=== PATIENT | female | born 1935 | race Caucasian/White ===

== ENCOUNTER 2019-01-09 17:09 | Inpatient (IN) ==
--- NOTE | 2019-01-09 18:11 | PROVIDER DOCUMENTATION ---
HPI-General Adult - General Chief Complaint: Return/Recheck Stated Complaint: CHILLS Time Seen by Provider: 01/09/19 17:34 Source: patient, family Allergies/Adverse Reactions: Patient Allergies Allergy/AdvReac Type Severity Reaction Status Date / Time diphenhydramine Allergy SHORTNESS Verified 12/27/18 21:48 [From Benadryl] OF BREATH Home Medications: Home Medication List Medication Instructions Recorded Confirmed Last Taken Type Glimepiride 4 mg PO DAILY 09/15/12 01/09/19 12/21/18 History Metformin [Glucophage] 500 mg PO DAILY 06/25/16 01/09/19 12/21/18 History Brimonidine/Timolol Ophth Soln 1 drp BOTH EYES HS 12/21/18 01/09/19 12/20/18 History [Combigan Ophth Soln] Hydrocodone/Acetaminophen [[place] 1 tab PO PRN PRN 01/09/19 01/09/19 Unknown History 10-325 Tablet] Morphine E.r. [Ms Contin] 15 mg PO 2-4XDAY PRN PRN 01/09/19 01/09/19 Unknown History - History of Present Illness -Gen Adult Nature of Presenting Problems: cancer patient receiving radiation and chemo for vulvar cancer who has had recurrent UTI's that has not responded to 2 rounds of oral antibiotics,who presents with increased weakness, decreased mentation, and chills since yesterday. Location of Pain/Injury: reports: none Pain Radiation: reports: no radiation Quality of Pain: reports: none Severity: reports: mild Onset/Duration: reports: gradual Timing: reports: still present Context/Activities at Onset: reports: light activity Modifying Factors: improves with: lying down Associated Symptoms: reports: fever/chills, other (chilled no measured temp) Similar Symptoms Previously?: Yes Recently seen or treated by another doctor?: Yes Review of Systems - Adult - REVIEW OF SYSTEMS - ADULT Constitutional: reports: chills, fever Eyes: reports: no symptoms reported Ears, Nose, Mouth & Throat: reports: no symptoms reported Cardiovascular: denies: chest pain, palpitations Respiratory: reports: shortness of breath Gastrointestinal: denies: diarrhea, nausea, vomiting Genitourinary: denies: dysuria Musculoskeletal: reports: no symptoms reported Integumentary: reports: no symptoms reported Neurological: reports: no symptoms reported Psychiatric: reports: no symptoms reported Endocrine: reports: no symptoms reported Hematologic/Lymphatic: reports: no symptoms reported Allergic/Immunologic: reports: no symptoms reported Past History - Adult - PAST MEDICAL HISTORY-ADULT Review of Records: reports: Nursing Assessment Review, Medications Reviewed, Social history reviewed & non-contributory. Major Childhood Illnesses: reports: denies history Cardiovascular: reports: HTN Respiratory: reports: denies history Gastrointestinal: reports: denies history Genitourinary: reports: cancer Musculoskeletal: reports: denies history Neurological: reports: denies history Psychiatric: reports: depression Endocrine/Immune: reports: Diabetes Diabetes Type: Type 2 Diabetes controlled by:: PO Meds - FAMILY HISTORY Family History: reviewed, not pertinent - SOCIAL HISTORY Smoking: denies Physical Exam-General - PHYSICAL EXAM-ADULT Initial Vital Signs Reviewed: Yes - CONSTITUTIONAL General Appearance: appears well, alert, no apparent distress - EYES Eyes: pale conjunctivae - HEAD, EARS, NOSE, MOUTH & THROAT HENMT: other (coated tongue) - NECK Neck: supple - RESPIRATORY Respiratory: lungs clear - CARDIOVASCULAR Cardiovascular: regular rate, rhythm, no edema - GASTROINTESTINAL (ABDOMEN) Abdominal Exam: normal bowel sounds, soft, no organomegaly, no pulsatile mass - LYMPHATIC Lymphatic: no adenopathy - MUSCULOSKELETAL Back Exam: normal inspection, no CVA tenderness, no vertebral tenderness Extremity: normal range of motion, non-tender - SKIN Integumentary: normal color, normal turgor - NEUROLOGIC Neurologic: grossly normal - PSYCHIATRIC Psych/Mental Status: oriented x 3 Progress - PLAN OF CARE/RESULTS Progress/Plan/Lab Results: Vital Signs - 8 hr 01/09/19 17:14 Temperature 98.8 F Pulse Rate 113 H Respiratory Rate 20 Blood Pressure 167/76 O2 Sat by Pulse Oximetry 96 Result Diagrams: 01/09/19 18:32 01/09/19 18:32 - CONSULTS/PCP/HOSPITALIST Notification #1 *Consult/PCP/Hospitalist*: Dr. Reyna, hospitalist Time Discussed: 22:25 Consult Disposition: Admit Departure - Departure Date of Disposition Decision: 01/09/19 Time of Disposition Decision: 22:27 DIAGNOSIS: Failure of outpatient treatment, Vulvar cancer, Weakness generalized Urinary tract infection Qualifiers: Urinary tract infection type: site unspecified Hematuria presence: with hematuria Qualified Code(s): N39.0 - Urinary tract infection, site not specified Anemia Qualifiers: Anemia type: unspecified type Qualified Code(s): D64.9 - Anemia, unspecified Disposition: ADMITTED INPATIENT 09 Certified Medical Emergency: Emergent Condition: Stable Referrals and Follow-Ups: Anmol Cottrell MD [Primary Care Provider] - - Critical Care Note This patient required my direct & personal management of CC.: No Attestation - Physician/ MELVIN Attestation Patient care was provided by Advanced Practice Provider:: No The physician spent face to face time with patient:: Yes Advanced Practice Provider documentation review:: Supervising physician onsite and consulted in the evaluation and care of this patient. The physician did have a face to face encounter with the patient.
[2019-01-09 19:12] LABS: BILIRUBIN URINE NEGATIVE (NEGATIVE); BLOOD URINE 1+ (NEGATIVE); CLARITY CLEAR (CLEAR); COLOR YELLOW; GLUCOSE URINE NEGATIVE (NEGATIVE); KETONE URINE TRACE mg/dL (NEGATIVE); LEUKOCYTES URINE 1+ (NEGATIVE); NITRITE URINE NEGATIVE (NEGATIVE); PH URINE 6.5; PROTEIN URINE 1+(30 mg/dL) mg/dL (NEGATIVE); UROBILINOGEN URINE NORMAL
[2019-01-09 19:20] LABS: CALCIUM 8.3 mg/dL (8.8-10.2); CREATININE 1.1 mg/dL (0.5-0.9); POTASSIUM 3.8 mmol/L (3.5-5.1); TOTAL BILIRUBIN 0.7 mg/dL (0.20-1.00); TOTAL PROTEIN 6.8 g/dL (6.3-8.3)
[2019-01-09 19:35] LABS: URINE BACTERIA 1+ /HFP; URINE CAST NONE SEEN /LPF; URINE CRYSTAL NONE SEEN /HPF; URINE EPITHELIAL CELLS <10 /HPF (<10); URINE WBC 20-40 /HPF (<10); URINE YEAST NONE SEEN /HPF
[2019-01-09 19:36] LABS: URINE SOURCE CATH
[2019-01-09 19:43] LABS: BASO# 0.01 X1000 (0.0-0.2); BASO% 0.1 % (0.0-0.8); EOS# 0.01 X1000 (0.0-0.7); EOS% 0.1 % (0.0-10.0); HEMATOCRIT 23.9 % (37.0-47.0); HEMOGLOBIN 7.2 g/dL (12.0-16.0); IMM GRAN# 0.04 X1000 (0.0-0.04); IMM GRAN% 0.6 % (0.0-0.5); LYMPH# 0.63 X1000 (1.2-3.4); LYMPH% 8.8 % (20.5-51.1); MCH 28.2 PG (27-31); MCHC 30.1 g/dL (33-37); MCV 93.7 FL (81-99); MONO# 0.91 X1000 (0.11-0.59); MONO% 12.7 % (1.7-9.3); MPV 9.4 FL (7.4-10.4); NEUT# 5.54 X1000 (1.4-6.5); NEUT% 77.7 % (42.2-75.2); PLT 289 X1000 (130-400); RBC 2.55 XMIL (4.2-5.4); RDW 17.5 % (11.5-14.5); WBC 7.14 X1000 (4.8-10.8)
[2019-01-09] MEDS ORDERED: ROCEPHIN 1 GM in NS 50 ML IV ONE (20:47)
[2019-01-09] MEDS ORDERED: MS CONTIN PO PRN (23:36)
[2019-01-10 06:35] LABS: BASO# 0.02 X1000 (0.0-0.2); BASO% 0.3 % (0.0-0.8); HEMATOCRIT 24.9 % (37.0-47.0); HEMOGLOBIN 7.2 g/dL (12.0-16.0); IMM GRAN# 0.03 X1000 (0.0-0.04); IMM GRAN% 0.4 % (0.0-0.5); LYMPH% 15.5 % (20.5-51.1); MCH 27.3 PG (27-31); MCHC 28.9 g/dL (33-37); MCV 94.3 FL (81-99); MONO# 1.04 X1000 (0.11-0.59); MONO% 14.7 % (1.7-9.3); MPV 9.4 FL (7.4-10.4); NEUT# 4.89 X1000 (1.4-6.5); NEUT% 69.1 % (42.2-75.2); PLT 281 X1000 (130-400); RBC 2.64 XMIL (4.2-5.4); RDW 17.2 % (11.5-14.5); WBC 7.08 X1000 (4.8-10.8)
[2019-01-10 06:46] LABS: CALCIUM 8.3 mg/dL (8.8-10.2); CREATININE 0.9 mg/dL (0.5-0.9); POTASSIUM 3.5 mmol/L (3.5-5.1)
[2019-01-10] MEDS ORDERED: MS CONTIN PO SCH (09:00)
--- NOTE | 2019-01-10 13:35 | HISTORY AND PHYSICAL ---
PRIMARY CARE PHYSICIAN: Dr. Anmol Cottrell PRIMARY REGULATORY AFFAIRS STRATEGY SPECIALIST: Dr. Craig HISTORY OF PRESENT ILLNESS: This is an 84-year-old female with history of vulvar cancer, currently under active chemotherapy. She was brought to the emergency department yesterday because she was confused. She was having fever and chills. She had also increased weakness. Apparently, she reported that she had a UTI that failed outpatient treatment. Last time she has been here was a few days ago. She was seen in the ER and she was sent home with amoxicillin. She did not notice basically too much improvement, so she decided to come to the emergency department here. Then, she was found to have normal white cell count. Actually the urinalysis did not show many white blood count and nitrate was negative. Because of weakness and recurrent UTI, she was admitted for recurrent UTI. PAST MEDICAL HISTORY: 1. Kiq-kcirfzu-bnfgovgog diabetes mellitus. 2. Hypercholesterolemia. 3. Hypertension. 4. Statin intolerance due to muscle pain. 5. Vulvar cancer diagnosed in 2018. She has received chemotherapy and radiotherapy. She is due for chemotherapy for tomorrow and a PET scan. PAST SURGICAL HISTORY: 1. Vulvar surgery last year. 2. Bladder suspension procedure in 2006. ALLERGIES: Patient is statin intolerant. SOCIAL HISTORY: She is a former smoker. She quit smoking 15 years ago. No alcohol or drugs. FAMILY HISTORY: Noncontributory. REVIEW OF SYSTEMS: Eleven systems were reviewed and all symptoms are related directly. DISCHARGE PHYSICAL EXAMINATION: Vital Signs: Temperature 99 degrees, heart rate 82, respiratory rate 18, blood pressure 120/36, O2 saturation 95% on room air General: This is a chronically ill-appearing, 84-year-old female lying in bed, in no acute distress. HEENT: Head is normocephalic, atraumatic. Alopecia secondary to chemotherapy. Mucous membranes moist. Conjunctivae pale but not icteric. Neck: No JVD noted. No carotid bruits. No lymphadenopathy. No thyromegaly. Cardiovascular: S1, S2 heard. No murmurs, gallops, or rubs. Regular rate and rhythm. Respiratory: Clear bilaterally to auscultation. No work of breathing. No use of accessory muscles. Abdomen: Soft. Nontender to palpation in the suprapubic area. Neurological: Alert and oriented x3. Moves 4 extremities. LABORATORY DATA: White cell count 7.0, hemoglobin 7.2, hematocrit 24.9, platelets 281,000 with normal BMP. ASSESSMENT AND PLAN: 1. Urinary tract infection. 2. General weakness. 3. Vulvar cancer under current chemotherapy. 4. Diabetes mellitus type 2. 5. Hypercholesterolemia. 6. Hypertension. At this point, because of recurrent UTIs, she has been admitted to the hospital. He has been started on ceftriaxone 1 g IV q.24 hours. We will continue with the same management. Will wait for results of urine culture and blood culture. The patient is supposed to receive chemotherapy tomorrow. He requests to be transferred to [facility] to be seen by his primary care doctor, Dr. Cottrell and by Dr. Riley. We will honor his wishes. For diabetes mellitus type 2, we will do sliding scale insulin, Accu-Chek before meals and also at bedtime. For hypertension, considering that his blood pressure is 120s, will hold all medications. Will monitor vitals q.4 hours in the hospital. DISPOSITION: Patient is going to be transferred to [facility] for further evaluation and treatment. cc: Sandoval Rust MD MTDYanelis
[2019-01-10] MEDS ORDERED: HUMALOG (PARKWAY) SUBQ SCH (16:00)
[2019-01-10] MEDS: NORCO-10 PO PRN (17:15)
[2019-01-10] MEDS ORDERED: ROCEPHIN 1 GM in NS 50 ML IV SCH (21:00)
[2019-01-10] MEDS ORDERED: REMERON PO SCH (21:00)
[2019-01-10] MEDS: ROCEPHIN 1 GM in NS 50 ML IV SCH (21:29)
[2019-01-10] MEDS: MS CONTIN PO SCH (21:30)
[2019-01-10] MEDS: COMBIGAN OPHTH SOLN BOTH EYES SCH (21:31)
[2019-01-10] MEDS: HUMALOG SUBQ SCH (21:31)
--- NOTE | 2019-01-10 21:43 | Diag Imaging Result Doc PS360 ---
EXAM: CT ANGIOGRM PULMONARY ARTERIES INDICATION: PE suspected TECHNIQUE: This exam was performed using automated exposure control, adjustment of mA or kV according to patient size, and/or use of iterative reconstruction technique. Thin section axial images and 3-D MIPS were obtained. COMPARISON: 09/08/2012 FINDINGS: There is no evidence of pulmonary embolism. There is extensive aortic atherosclerotic calcification. There is no evidence of aortic aneurysm or dissection. There is no cardiomegaly. There are coronary artery calcifications. There are a few calcified mediastinal lymph nodes indicating prior granulomatous disease. There is trace pleural fluid at the lung bases and minimal bibasilar atelectasis. There are scattered calcified granulomata bilaterally as well as punctate noncalcified nodules that are stable and assumed to represent tiny noncalcified granulomata. Otherwise, the lungs are clear. Limited views of the upper abdomen are essentially unremarkable. IMPRESSION: 1.Trace pleural fluid at the lung bases and minimal bibasilar atelectasis. 2.Other incidental/nonacute findings detailed above. No evidence of pulmonary embolism. Electronically signed by Agustin Jain 01/10/2019 9:41 PM
[2019-01-11] MEDS: PRILOSEC PO SCH ×2 (05:58→06:31)
[2019-01-11] MEDS: HUMALOG SUBQ SCH ×4 (06:30→22:50)
[2019-01-11 06:35] LABS: BASO# 0.01 X1000 (0.0-0.2); BASO% 0.2 % (0.0-0.8); EOS# 0.03 X1000 (0.0-0.7); EOS% 0.5 % (0.0-10.0); HEMATOCRIT 22.1 % (37.0-47.0); HEMOGLOBIN 6.8 g/dL (12.0-16.0); IMM GRAN# 0.02 X1000 (0.0-0.04); IMM GRAN% 0.3 % (0.0-0.5); LYMPH# 0.75 X1000 (1.2-3.4); LYMPH% 11.6 % (20.5-51.1); MCH 28.3 PG (27-31); MCHC 30.8 g/dL (33-37); MCV 92.1 FL (81-99); MONO# 0.77 X1000 (0.11-0.59); MONO% 11.9 % (1.7-9.3); MPV 9.1 FL (7.4-10.4); NEUT# 4.88 X1000 (1.4-6.5); NEUT% 75.5 % (42.2-75.2); PLT 284 X1000 (130-400); WBC 6.46 X1000 (4.8-10.8)
[2019-01-11 06:44] LABS: AGAP 12; ALB/GLOB RATIO 0.7; ALBUMIN 2.5 g/dL (3.5-5.0); ALKALINE PHOSPHATASE 88 U/L (32-104); BUN 15 mg/dL (8-22); CALCIUM 8.4 mg/dL (8.8-10.2); CHLORIDE 99 mmol/L (98-107); COSMO 274; CREATININE 0.8 mg/dL (0.5-0.9); ESTIMATED GFR > 60; GLUCOSE 112 mg/dL (70-104); GOT 23 U/L (10-30); GPT 14 U/L (10-36); POTASSIUM 3.1 mmol/L (3.5-5.1); SODIUM 136 mmol/L (136-145); TCO2 25 mmol/L (25-35); TOTAL BILIRUBIN 0.52 mg/dL (0.20-1.00); TOTAL PROTEIN 6.3 g/dL (6.3-8.3)
[2019-01-11] MEDS ORDERED: LOVENOX SUBQ SCH (09:00)
--- NOTE | 2019-01-11 09:20 | PROGRESS NOTE ---
DATE: 01/11/2019 SUBJECTIVE: The patient is sitting in bed, awake and alert. She is calm. She has no complaints. Admission documentation and the ER visit documentation had been reviewed. OBJECTIVE: Vital Signs: 98.5, 76, 20, 121/48, 99% saturated on nasal cannula. PHYSICAL EXAMINATION: Neuropsych: The patient is alert, oriented, conversant and appropriate. She is a little bit sedate, but she is able to laugh at humorous quips. She is not crying. Lungs: Clear. Cardiovascular: Regular. LABORATORY: White cell count 6.6, hemoglobin is 6.8, hematocrit 22.1, potassium 3.1, creatinine 0.8. ASSESSMENT AND PLAN: 1. The patient has end stage vulvar cancer treated with chemotherapy. Since her last dosing a week and a half ago she has developed arthropathy of the left hand which may be related. She is considering discontinuing chemotherapy, but I have instructed her to discuss this thoroughly with Dr. Riley as to the efficacy of her new treatment. 2. The patient's diabetes is reasonably well controlled. She is not eating well. Her blood sugars have not been low or significantly high. It is noted that she has had weight loss. 3. The patient states that she is confused ever since starting extended release morphine. Unfortunately, there is not a lower extended-release dose available for that. She may benefit from lower doses of OxyContin for continuous pain control. She actually says that her pain is not bad. 4. The patient is in nutritional deficit from the ravages of cancer and chemotherapy. She is encouraged to eat. She is on mirtazapine. I have lowered her dose to 7.5, to help maybe clear some of the fog of her general sensorium. 5. Blood pressure and cardiovascular stable. 6. Hypokalemia is noted. With transfusion of red cells. This should come up some. 7. The patient is anemic with a hemoglobin of 6.8. I plan to transfuse 1 unit packed red cells and recheck in the morning. Serious discussion about do not resuscitate needs to be made. We have discussed in the this in the office in the past. cc: Anmol Cottrell MD
[2019-01-11] MEDS: LOVENOX SUBQ SCH (09:29)
[2019-01-11] MEDS ORDERED: NS 500 ML ONE (12:57)
--- NOTE | 2019-01-11 16:15 | HEMO/ONC CONSULTATION ---
DATE: 01/11/2019 REQUESTING PHYSICIAN: Hospitalist service. REASON FOR CONSULTATION: Vulvar cancer, patient known. HISTORY OF PRESENT ILLNESS: Ms. Melendrez is an 84-year-old female, who is known to us as we are currently treating her for recurrent vulvar cancer. Reportedly, the patient had some confusion with fevers and chills while at home. She also had lots of weakness. She was brought to the emergency department, where she was found to have a UTI. The patient had actually recently been seen at an ER and was already on oral antibiotics for a UTI. She has failed oral antibiotics and has now been admitted for further evaluation and treatment. The patient is currently getting carboplatin and Abraxane weekly in our office. We saw her last about a week or so ago. At that time, we actually held treatment due to her having a decline in her performance status. She was on oral antibiotics on 01/03/2019 and was afebrile, and her symptoms were improving. The patient has also recently seen Dr. Craig, who is from [facility], for an examination. She has been having recurrent UTIs now for the last month or so and has had multiple rounds of oral antibiotics. We have been consulted to help with management of the patient while she is here at the hospital. PAST MEDICAL HISTORY: 1. Yjn-gsauuoc-rhgojbicd diabetes mellitus. 2. Hypercholesterolemia. 3. Hypertension. 4. Recurrent vulvar carcinoma, currently getting weekly carboplatin plus Abraxane, with her last treatment being on 12/24/2018. Recent hold of treatment due to decline in performance status. PAST SURGICAL HISTORY: 1. Vulvar surgery. 2. Bladder suspension procedure back in 2006. SOCIAL HISTORY: Patient is a former smoker, but does not currently smoke. She denies any alcohol use or any illicit drug use. FAMILY HISTORY: Her mother at age of 70, and she had diabetes. Her father at the age of 85. She has 1 brother who is currently alive and has no reported medical issues. She has 9 other siblings who are . She did have 2 sisters who had breast cancer. REVIEW OF SYSTEMS: A 12 point review of systems has been completed and is negative except as expressed in HPI. PHYSICAL EXAMINATION: Vital Signs: Temperature 98.5 degrees, heart rate 76, respirations 20, blood pressure 121/40, O2 saturation 99% on room air. General: This is a female, lying in her hospital bed. She is in no acute distress. No family is at bedside. Head: Normocephalic, atraumatic. Eyes: Pupils equal, round, reactive. Ears, nose, throat, mouth: Oral mucosa is normal. Cardiovascular: S1, S2 heard. There are no murmurs, gallops, rubs appreciated. Respiratory: Chest is clear. Gastrointestinal: Positive bowel sounds noted. Nontender, nondistended. Musculoskeletal: No obvious bony abnormalities. Skin: No rashes. Neurologic: Patient is alert, and oriented at this time. No obvious focal motor deficits noted. DIAGNOSTIC STUDIES: White blood cells today are 6.46, hemoglobin 6.8, platelet count 284,000. Potassium is 3.1. Blood cultures show no growth after 48 hours. Urine culture shows no growth. ASSESSMENT AND PLAN: 1. Recurrent vulvar carcinoma. Patient has been receiving chemotherapy in our office. We recently had to hold due to a declining performance status. Could have been secondary to UTI. The plan was actually to for the patient to have a PET scan earlier today, with follow-up. We have moved that next week, and we will plan to proceed with the PET scan and review that and discuss further treatment from there. 2. Recurrent urinary tract infection. Continue IV antibiotics per the primary team. 3. Pain. We have been given the patient [place] and MS Contin as an outpatient. It looks like her medications are on hold currently, as there is a question that may be contributing to her confusion. 4. Hypokalemia. Management per primary team. 5. Anemia. It looks like they are ready planning to give her a unit of packed red blood cells, which we agree. Patient is receiving growth factor for chemotherapy-induced anemia as an outpatient. We want to thank you for consulting us on Ms. Melendrez. We will continue to follow along and adjust our treatment plan per her hospital course. Dictated by GOKUL Jane for Tara Riley MD cc: MD Anmol Vasquez MD I have seen and examined the patient and the above note reflects my history, physical examination, assessment and plan. Tara Riley MD [facility]
[2019-01-11] MEDS: REMERON PO SCH (20:27)
[2019-01-11] MEDS: NORCO-10 PO PRN (20:27)
[2019-01-11] MEDS: ROCEPHIN 1 GM in NS 50 ML IV SCH (20:27)
[2019-01-11] MEDS: COMBIGAN OPHTH SOLN BOTH EYES SCH (20:28)
[2019-01-12] MEDS: PRILOSEC PO SCH ×2 (05:53→09:39)
[2019-01-12 06:11] LABS: BASO# 0.01 X1000 (0.0-0.2); BASO% 0.2 % (0.0-0.8); HEMATOCRIT 27.4 % (37.0-47.0); HEMOGLOBIN 8.6 g/dL (12.0-16.0); LYMPH% 14.8 % (20.5-51.1); MCH 27.7 PG (27-31); MCHC 31.4 g/dL (33-37); MCV 88.4 FL (81-99); MONO# 0.51 X1000 (0.11-0.59); MONO% 9.5 % (1.7-9.3); PLT 264 X1000 (130-400); RDW 16.3 % (11.5-14.5); WBC 5.39 X1000 (4.8-10.8)
[2019-01-12 06:52] LABS: AGAP 12; BUN 14 mg/dL (8-22); CALCIUM 8.8 mg/dL (8.8-10.2); CHLORIDE 95 mmol/L (98-107); COSMO 269; CREATININE 0.7 mg/dL (0.5-0.9); ESTIMATED GFR > 60; GLUCOSE 103 mg/dL (70-104); POTASSIUM 2.8 mmol/L (3.5-5.1); SODIUM 134 mmol/L (136-145); TCO2 27 mmol/L (25-35)
[2019-01-12 07:16] LABS: BANDS 4 % (0-1); EOS 2 % (1-10); LYMPHS 14 % (21-51); MONO 2 % (1-9); SEGS 78 % (42-75)
[2019-01-12] MEDS ORDERED: MAGNESIUM SULFATE 2 GM/S.W.I. 2 GM/50 ML IVPB IV ONE (08:01)
--- NOTE | 2019-01-12 09:26 | Diag Imaging Result Doc PS360 ---
CHEST-2 VIEWS - 01/09/2019 INDICATION: shortness of breath COMPARISON: 06/25/2016 FINDINGS: The lungs are normally expanded and clear. Heart size and mediastinal contours are normal. No pneumothorax or pleural effusion. IMPRESSION: Negative exam. Electronically signed by Donnell Tomlinson 01/12/2019 9:23 AM
[2019-01-12] MEDS: LOVENOX SUBQ SCH (09:39)
[2019-01-12] MEDS: MS CONTIN PO SCH ×2 (09:39→23:02)
[2019-01-12] MEDS: HUMALOG SUBQ SCH ×4 (09:43→23:02)
[2019-01-12] MEDS: POTASSIUM CHLORIDE 40 MEQ in NS 250 ML IV SCH ×2 (12:53→23:01)
[2019-01-12] MEDS: COMBIGAN OPHTH SOLN BOTH EYES SCH (21:45)
[2019-01-12] MEDS: ROCEPHIN 1 GM in NS 50 ML IV SCH (23:01)
[2019-01-12] MEDS: REMERON PO SCH (23:01)
[2019-01-13] MEDS: POTASSIUM CHLORIDE 40 MEQ in NS 250 ML IV SCH (01:46)
[2019-01-13] MEDS: NORCO-10 PO PRN (05:04)
[2019-01-13] MEDS: PRILOSEC PO SCH (06:35)
[2019-01-13] MEDS: HUMALOG SUBQ SCH ×4 (06:35→21:03)
--- NOTE | 2019-01-13 10:02 | PROGRESS NOTE ---
DATE: 01/12/2019 SUBJECTIVE: The patient states that she feels a little better. She is in a better mood. She did pretty well with reduced doses of pain medications yesterday. She did not get up with physical therapy. She is eating a bit better. We discussed her low potassium. PHYSICAL EXAM: Vital Signs: 98.0, 68, 14, 130/47, 99% saturated on room air. Lungs are clear. Cardiovascular: Regular. Extremities: No peripheral edema. She has some muscle wasting in her thighs. Neurologic/psychiatric: She is alert, oriented, conversive and appropriate. LABORATORY: Hemoglobin is up to 8.6 following transfusion. Potassium has dropped to 2.9 despite transfusion, BUN 14, creatinine 7, blood sugars variable depending on how much she eats. ASSESSMENT AND PLAN: 1. Dr. Riley is handling the patient's vulvar cancer. Consultation has been completed. 2. Diabetes is variable, but her appetite has been so poor that we had held her diabetic medications. We will continue to watch this. 3. Reduction in MS Contin has resulted in a little bit clearer sensorium for the patient. 4. Nutritional deficit remains. The patient is encouraged to eat. 5. Blood pressure and cardiovascular are stable. 6. Potassium and magnesium will be transfused today. We will recheck this as necessary. 7. The patient has been transfused 1 unit of packed cells with improvement in her hemoglobin that is appropriate. cc: Anmol Cottrell MD
--- NOTE | 2019-01-13 10:25 | Diag Imaging Result Doc PS360 ---
EXAM: KNEE 3 VIEWS RIGHT 01/13/2019 HISTORY: comparison film TECHNIQUE: Right knee three views COMMENT: There is narrowing of the medial joint compartment. There is no evidence of acute fracture or dislocation. There is atherosclerotic calcification in the superficial femoral and popliteal arteries. IMPRESSION: Osteoarthritis. Electronically signed by Eamon Larsen 01/13/2019 10:23 AM
--- NOTE | 2019-01-13 10:27 | Diag Imaging Result Doc PS360 ---
EXAM: KNEE 3 VIEWS LEFT 01/13/2019 HISTORY: left knee pain TECHNIQUE: Left knee three views COMMENT: There is chondrocalcinosis in the menisci. There are calcific atherosclerotic plaques throughout the superficial femoral and popliteal arteries. There is calcification in the quadriceps tendon. No evidence of acute fracture or dislocation is present. There may be a small suprapatellar effusion. 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 Severe atherosclerosis. Electronically signed by Eamon Larsen 01/13/2019 10:24 AM
[2019-01-13] MEDS: GLUCOPHAGE PO SCH (10:39)
[2019-01-13] MEDS: MS CONTIN PO SCH (10:39)
[2019-01-13] MEDS: LOVENOX SUBQ SCH (10:39)
--- NOTE | 2019-01-13 12:11 | PROGRESS NOTE ---
DATE: 01/13/2019 SUBJECTIVE: The patient states she is feeling okay. She is not having much pain. She is eating reasonably well. She states that she did not get up with physical therapy yesterday, even though they had her sit up for quite some time. She stated that her left knee was hurting, and she had fallen at home. This is the first I have heard of this in 3 days. She initially complained that her left hand was stiff or hurting, but never mentioned any problems with her legs or knees. At the present time, she does not think that she could ambulate. The patient is eating reasonably well. Her blood sugars are trending upward. We discussed this. OBJECTIVE: 97.8, 76, 16, 146/51, and 100% saturated on nasal cannula. On physical exam, the patient's lungs are clear. Cardiovascular regular. Extremities revealed no peripheral edema. There appears to be resolving bruise on the medial portion of the left knee. There is a slight enlargement or effusion of the left popliteal fossa. The patient has some tenderness medially. She also has tenderness with anterior drawer and with varus stress to the knee. The remainder of the leg appears normal with the exception of some muscle wasting in the thighs due to the ravages of her disease. Neuropsych: Patient is alert, oriented, conversive, and appropriate. LABORATORY: No lab was drawn. The patient's blood sugars have been trending upward into the mid to upper 200s. ASSESSMENT AND PLAN: 1. End-stage vulvar cancer is being handled by Dr. Riley. 2. The patient's diabetes is trending upward and less well controlled. She is eating a bit better now. I plan to reinstitute her glimepiride, and we will monitor blood sugars. 3. The patient is on extended release morphine twice a day. At this point, she has p.r.n.'s for breakthrough pain, which she rarely uses. After reducing her mirtazapine at night, she seemed to have a little clearer sensorium. I do not think that there is any need to change that extended release morphine at the present time. 4. Nutritional deficit is noted. 5. Blood pressure and cardiovascular are stable. 6. We will recheck the patient's potassium tomorrow. 7. We will recheck hemoglobin tomorrow. 8. I have ordered x-rays of both knees so we can have comparison films, and I have put in a consult for Dr. Knowles to see if there is anything we can do to alleviate her knee pain. 9. The patient continues to require inpatient hospital care, and hopefully we can get this knee addressed and get her back on her feet that she would be ready to go home. At the present time, I do not think she could manage her own affairs due to lack of mobility as she lives alone. It is unlikely that the patient would agree to a rehab stay. We may discuss this going down the line. cc: Anmol Cottrell MD
[2019-01-13] MEDS ORDERED: DEPO-MEDROL IM ONE (15:00)
[2019-01-13] MEDS ORDERED: MARCAINE 0.5% INJ ONE (15:01)
[2019-01-13 19:39] LABS: BODY FLUID SOURCE SYNOVIAL FLUID; MONOS 12 %; POLYS 88 %; WBC BF 11050 /cumm
[2019-01-13] MEDS: ROCEPHIN 1 GM in NS 50 ML IV SCH (21:02)
[2019-01-13] MEDS: REMERON PO SCH (21:03)
[2019-01-13] MEDS: COMBIGAN OPHTH SOLN BOTH EYES SCH (21:04)
[2019-01-14] MEDS: MS CONTIN PO SCH ×2 (03:21→10:15)
--- NOTE | 2019-01-14 03:57 | ORTHOPAEDICS CONSULTATION ---
DATE: 01/13/2019 PRIMARY CARE PHYSICIAN: Dr. Cottrell. REASON FOR CONSULTATION: Left knee pain. HISTORY OF PRESENT ILLNESS: Ms. Melendrez is an 84-year-old female with a past medical history of diabetes mellitus, hyperlipidemia, hypertension and vulvar cancer, as well as left knee pain. She presented to the [facility] Emergency Room on with complaints of confusion, weakness, fever and chills. She reported she had a UTI that had failed outpatient treatment. She has not been feeling well over the last couple of days. Over the last couple of days she has started having some left knee pain. Apparently she did have a fall at home at some point. She was not initially complaining of it, but today it is bothering her more. She states that it is hurting so bad she does not think she can ambulate. Orthopedics has been consulted for management of the left knee pain. PAST MEDICAL HISTORY: 1. Dmk-iasfalm-[id number] diabetes mellitus. 2. Hypercholesterolemia. 3. Hypertension. 4. 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 5. Vulvar cancer diagnosed in 2018, currently receiving chemotherapy. PAST SURGICAL HISTORY: 1. Vulvar surgery in 2018. 2. Bladder suspension procedure in 2006. ALLERGIES: Statin intolerance. SOCIAL HISTORY: She is a former smoker. She quit smoking about 15 years ago. Denies alcohol or illicit drugs. FAMILY HISTORY: Noncontributory. REVIEW OF SYSTEMS: A 10 point review of systems was completed and negative except for what was mentioned above in the HPI. PHYSICAL EXAMINATION: Vital Signs: Temperature is 97.8 degrees, pulse is 81, respirations 16, blood pressure is 122/53, and she is 100% on 2 L nasal cannula. General: This is an elderly appearing 84-year-old female in no acute distress. Neurological: She is alert and oriented x3 at the present with no focal deficits. HEENT: Head is atraumatic and normocephalic. Pupils are equal, round and reactive to light. Cardiovascular: Regular rate and rhythm. Pulmonary: Breathing is even and nonlabored. Abdomen: Appears nondistended. Extremities: Denies tenderness to palpation to any extremity except for the left knee. She does have a little bit of generalized ecchymosis to the knee. She has a mild effusion. She does have a little bit of tenderness medially. Ligamentous exam appears stable. She is neurovascularly intact. IMAGING: A left knee 3-view does show some degenerative joint disease throughout. I do not see any acute fracture or dislocation. There is a mild effusion noted. ASSESSMENT: Left knee pain. PLAN: Dr. Knowles is going to talk to Dr. Cottrell. The plan will most likely be to aspirate the knee and inject a Depo-Medrol solution as long as there is no infection suspected. He is going to get the okay from Dr. Cottrell. Once we get that okay we plan to proceed with that. We will send the aspiration off for culture and cell count, but if at the time of aspiration it looks nice and clear we will plan on injecting the steroid at that time. We will also plan to get her to work with Physical Therapy. So after we get the okay from him we will proceed with that. Thank you for the consult. Dictated by JASON Hernandez for Hal Knowles MD cc: JASON Hernandez MD Timothy P. Weirich, MD
[2019-01-14] MEDS: HUMALOG SUBQ SCH ×2 (06:12→11:51)
[2019-01-14] MEDS: PRILOSEC PO SCH (06:12)
--- NOTE | 2019-01-14 06:27 | ORTHOPAEDICS PROGRESS NOTE ---
DATE: 01/13/2019 SUBJECTIVE: Patient has a large effusion left knee. The patient was admitted hospital on 01/10/2019, with fever and chills, and was diagnosed with a UTI. The patient was noted have some swelling in her left knee as well. She does recall a fall, having some discomfort in the left knee and has been noted to have large swelling. The patient does report she sustained a fall, landed on her left knee this past Thursday. OBJECTIVE: Her left knee has large effusion. No increased warmth or erythema. Tenderness to palpation diffusely along the medial and lateral joint line. Discomfort with terminal extension and flexion. Calves are soft. IMAGING: X-rays did reveal underlying osteoarthritis. IMPRESSION: Left knee contusion with effusion and underlying osteoarthritis. PLAN: I discussed treatment options with the patient and the family. At this time, would recommend proceeding with an aspiration. Approximately 40 mL of serous fluid was aspirated. Given the patient's admitting diagnosis of fever and chills, and UTI, we will obtain Gram stain, culture, and cell count, as well as crystals. It will not hurt to rule out occult infection. The patient did receive 80 mg Depo-Medrol along with 0.5% Marcaine without epinephrine. The patient tolerated the procedure well. We will await results. Again, the patient did not have clinical findings of septic joint. We will wait for results and see how the patient responds. cc: MD Anmol Parra MD MTDD
[2019-01-14 07:06] LABS: HEMATOCRIT 28.3 % (37.0-47.0); HEMOGLOBIN 8.7 g/dL (12.0-16.0); LYMPH# 0.58 X1000 (1.2-3.4); LYMPH% 6.9 % (20.5-51.1); MCHC 30.7 g/dL (33-37); MONO# 0.25 X1000 (0.11-0.59); MPV 9.4 FL (7.4-10.4); NEUT# 7.54 X1000 (1.4-6.5); NEUT% 90.1 % (42.2-75.2); PLT 257 X1000 (130-400); RBC 3.11 XMIL (4.2-5.4); RDW 16.2 % (11.5-14.5); WBC 8.37 X1000 (4.8-10.8)
[2019-01-14 07:13] LABS: AGAP 12; CHLORIDE 92 mmol/L (98-107); GLUCOSE 243 mg/dL (70-104); POTASSIUM 4.1 mmol/L (3.5-5.1); SODIUM 128 mmol/L (136-145); TCO2 24 mmol/L (25-35)
[2019-01-14 07:14] LABS: ALB/GLOB RATIO 0.6; ALBUMIN 2.4 g/dL (3.5-5.0); ALKALINE PHOSPHATASE 155 U/L (32-104); BUN 18 mg/dL (8-22); COSMO 267; CREATININE 0.6 mg/dL (0.5-0.9); ESTIMATED GFR > 60; GOT 19 U/L (10-30); GPT 17 U/L (10-36); TOTAL PROTEIN 6.5 g/dL (6.3-8.3)
[2019-01-14 07:41] VITALS: BP 120/48
[2019-01-14] MEDS ORDERED: AMARYL PO SCH (09:00)
[2019-01-14] MEDS ORDERED: SODIUM BICARBONATE PO ONE (09:07)
[2019-01-14] MEDS: GLUCOPHAGE PO SCH (10:15)
[2019-01-14] MEDS: LOVENOX SUBQ SCH (10:15)
--- NOTE | 2019-01-14 14:23 | ORTHOPAEDICS PROGRESS NOTE ---
DATE: 01/14/2019 SUBJECTIVE: The patient is an 84-year-old female who underwent aspiration and injection yesterday for her left knee. The patient feels better this morning. Her left knee swelling is much improved. She has good range of motion. No increased warmth or erythema. Calf is soft. Gram stain was negative. Her cell count revealed on 11,050 WBCs. IMPRESSION: Left knee contusion with effusion and underlying osteoarthritis. PLAN: At this point, the patient seems to be responding well. The patient will begin mobilization as tolerated with weightbearing as tolerated in the left lower extremity. Her lab results are negative for septic joint. Patient will mobilize weightbearing as tolerated left lower extremity with physical therapy. All questions were answered. Will be available if needed. cc: MD Anmol Parra MD MTDD
--- NOTE | 2019-01-15 11:11 | DISCHARGE SUMMARY ---
ADMISSION DATE: 01/10/2019 DISCHARGE DATE: 01/14/2019 DISCHARGE DIAGNOSES: 1. Vulvar cancer. 2. Status post chemotherapy. 3. Generalized weakness. 4. Anemia. 5. Failure of outpatient treatment for urinary tract infection. 6. Type 2 diabetes mellitus. 7. Bilateral primary osteoarthritis of the knee. 8. Left knee pain. CONSULTATION: Dr. Tara Riley and Dr. Florinda Knowles. HOSPITAL COURSE: An 84-year-old white female who had chemo over a week ago. She had been treated at [facility] at the ER for UTI but came in for profound weakness. She was hydrated after admission and seemed to feel a bit better, but she was anemic and was transfused 1 unit of packed red cells with a nice recovery in her hemoglobin level. She slowly gained strength and was eating more each day. As the hospitalization evolved, the patient complained of left knee pain. She then revealed some 3 days after admission that she had fallen at home, landed on her knee, and it was very painful. Dr. Knowles was consulted. X-rays were taken, and he eventually decided to inject the left knee. He performed this on 01/13/2019 and really by the end of that day, she was feeling much, much better. Up until that point, she had only ambulated a short distance in the room because of the knee pain. After the injection and physical therapy followed up, the patient was able to walk around the room quite easily. We discussed prior to discharge the need for some home physical therapy and/or home health evaluation to help with her overall maintenance and for the recovery of her strength. I believe she would benefit from home physical therapy to provide better gait stability, increased endurance and overall strength. A somewhat incidental finding of her knee x-ray was some peripheral arterial sclerosis. The patient will continue to follow up with Dr. Riley for her vulvar cancer, and decisions will have to be made as to whether continuing further chemotherapy. Also incidentally and possibly contributory to her admitting symptoms were the fact that she was taking her full dose of blood pressure medications. She has lost considerable amount of weight through the treatment of her cancer, and during her hospitalization, her blood pressure medication was held altogether. Despite not taking any antihypertensive medication, her blood pressure remained within a reasonable range, and she is discharged home without that medication. DISCHARGE MEDICATIONS: Brimonidine, timolol ophthalmic solution to both eyes at bedtime, glimepiride 4 mg p.o. daily, hydrocodone 10/325 q.6 hours p.r.n. breakthrough pain, metformin 500 mg p.o. daily, mirtazapine 7.5 mg p.o. at bedtime, morphine ER 15 mg p.o. q.12 hours, omeprazole 20 mg p.o. daily in the morning. FOLLOWUP: The patient s to follow up within 2 weeks in my office. We will arrange for a home health and physical therapy evaluation. cc: Anmol Cottrell MD
== END 2019-01-14 14:43 | disposition home health service (06) | DRG 690 ==
LOC: P.ED 17:09 → SUATTDRO 01-10 00:49 → P.MEDSURG 01-10 00:49 → 3N 01-10 16:24
PROVIDERS: ADMIT Internal Medicine; ATTEND Internal Medicine